=== PATIENT | female | born 2000 | race Caucasian/White ===

== ENCOUNTER 2022-07-26 18:15 | Emergency (ER) | payer OTHER, SELFPAY ==
[2022-07-26 18:25] VITALS: BP 114/74; PULSE 98; RESP 16; TEMP 36.8; O2SAT 98; BMI 22.0
[2022-07-26 19:56] LABS: Appearance Urine Clear (Clear); Bilirubin Urine Negative (Negative); Blood Urine 2+ (Negative); Color Urine Yellow (Yellow); Glucose Urine Negative (Negative); Ketones Urine Negative (Negative); Leukocyte Esterase Urine 3+ (Negative); Nitrite Urine Positive (Negative); Protein Urine 3+ (Negative); Urobilinogen Urine 0.2 (0.2-1.0); pH Urine 5.5 (5.0-8.5)
--- NOTE | 2022-07-26 20:11 | ED.GENADULT ---
HPI - General Adult General Time Seen by Provider: 20:11 Date Seen: 07/26/22 Chief complaint: Back Injury/Pain Stated complaint: Lower back Pain Poss UTI Time Seen by Provider: 07/26/22 19:53 Source: patient Mode of arrival: ambulatory Limitations: no limitations History of Present Illness HPI narrative: Patient is a 21-year-old female who has history UTI in the past, has dysuria frequency for last couple of days. No significant flank pain but has some low back discomfort. She feels incompletely emptying her bladder, no rigors. Related Data Home Medications Medication Instructions Recorded Confirmed No Known Home Medications 07/26/22 07/26/22 Allergies Allergy/AdvReac Type Severity Reaction Status Date / Time No Known Drug Allergies Allergy Verified 07/26/22 18:28 Review of Systems Status of ROS: Reports: 6 or more systems reviewed and unremarkable except as noted in History and below PFSH PFS Social History Smoking Status: Never smoker Do you use any of these nicotine containing products: None How often do you have a drink containing alcohol: never AUDIT-C Alcohol total score: 0 Non-prescribed substance use: denies use Exam Narrative: Exam Narrative: Vital signs as recorded, afebrile, mild suprapubic tenderness, mild low back discomfort but no CVA tenderness Const: Vital Signs, click to edit/add: Vital Signs - 24 hr 07/26/22 18:25 Temperature 98.3 F Pulse Rate [Left P ulse Oximeter] 98 Respiratory Rate 16 Blood Pressure [Ri ght Upper Arm] 114/74 Pulse Oximetry 98 Oxygen Delivery Me thod Room Air Course Vital Signs Vital signs: Initial Vital Signs Temperature 98.3 F 07/26/22 18:25 Temperature Source Temporal Artery Scan 07/26/22 18:25 Pulse Rate 98 07/26/22 18:25 Pulse Rhythm 07/26/22 18:25 Pulse Strength 3+ Normal 07/26/22 18:25 Respiratory Rate 16 07/26/22 18:25 Blood Pressure 114/74 07/26/22 18:25 Blood Pressure Mean 87 07/26/22 18:25 Blood Pressure Position Sitting 07/26/22 18:25 Pulse Oximetry 98 07/26/22 18:25 Oxygen Delivery Method 07/26/22 18:25 Vital Signs Temperature 98.3 F 07/26/22 18:25 Pulse Rate 98 07/26/22 18:25 Respiratory Rate 16 07/26/22 18:25 Blood Pressure 114/74 07/26/22 18:25 Pulse Oximetry 98 07/26/22 18:25 Oxygen Delivery Method 07/26/22 18:25 Temperature 98.3 F 07/26/22 18:25 Pulse Rate 98 07/26/22 18:25 Respiratory Rate 16 07/26/22 18:25 Blood Pressure 114/74 07/26/22 18:25 Pulse Oximetry 98 07/26/22 18:25 Oxygen Delivery Method 07/26/22 18:25 Medical Decision Making Lab Data Labs: Lab Results 07/26/22 Range/Units 18:35 Urine Color Yellow (Yellow) Urine Appearance Clear (Clear) Urine pH 5.5 (5.0-8.5) Ur Specific Debary 1.020 (1.000-1.030) Urine Protein 3+ A (Negative) Urine Glucose (UA) Negative (Negative) Urine Ketones Negative (Negative) Urine Blood 2+ A (Negative) Urine Nitrite Positive A (Negative) Urine Bilirubin Negative (Negative) Urine Urobilinogen 0.2 (0.2-1.0) Ur Leukocyte Esterase 3+ A (Negative) Urine RBC 25-50 A (0-2) Urine WBC >100 A (0-5) Urine Bacteria Moderate A (None) Discharge Plan Discharge Clinical Impression: Urinary tract infection Patient Disposition: Home, Self-Care Condition: Stable Additional Instructions: Rest fluids, antibiotics, recheck with primary care in the next 2-3 days Activity Level: No Restrictions Discharge Diet: Regular Prescriptions: No Action No Known Home Medications Stand Alone Forms: [facility] Info Instructions
[2022-07-26 20:57] LABS: Bacteria Urine Moderate; RBC Urine 25-50 (0-2); WBC Urine >100 (0-5)
[2022-07-27 14:19] LABS: Squamous Epithelial Cell Urine Few (None-Few)
== END 2022-07-26 20:36 | disposition home or self-care (01) ==
LOC: ED 20:29
PROVIDERS: Emergency Provider Family Medicine
DX: N39.0 Urinary tract infection, site not specified (principal)
CPT/HCPCS: 81003; 81015; 87086; 87186; 99283

== ENCOUNTER 2023-07-29 15:09 | Outpatient (CLI) | payer BC, SELFPAY | END 2023-07-29 15:10 | disposition home or self-care (01) | PROVIDERS: Visit Provider Physician Assistant | DX: R30.0 Dysuria (principal); J32.9 Chronic sinusitis, unspecified | CPT/HCPCS: 87086 ==